=== PATIENT | male | born 1950 | race Hispanic/Latino ===

== ENCOUNTER 2025-05-27 16:26 | Emergency (ER) | payer MEDICARE, OTHER ==
[2025-05-27] MEDS ORDERED: Ondansetron PF 4 MG/2 ML Vial ONE (17:52)
[2025-05-27 18:15] LABS: #Basophils 0.04 10x3/uL (0.0-0.2); #Eosinophils Less than 0.03 10x3/uL (0.0-0.5); #Monocytes 1.14 10x3/uL (0.0-1.1); #Neutrophils 20.48 10x3/uL (1.5-8.4); %Basophils 0.2 % (0.0-2.0); %Eosinophils 0.1 % (0.0-6.0); %Lymphocytes 5.7 % (18.0-47.0); %Monocytes 4.9 % (0.0-10.0); %Neutrophils 88.5 % (40.0-75.0); Hematocrit 50.4 % (38.8-50.0); Hemoglobin 16.2 g/dL (13.5-17.5); Mean Corpuscular Hemoglobin 29.1 pg (27.0-33.0); Mean Corpuscular Volume 90.6 fL (81.2-95.1); Platelet Count 250 10x3/uL (150-450); Red Blood Cell (RBC) Count 5.56 10x6/uL (4.32-5.72); White Blood Cell (WBC) Count 23.12 10x3/uL (3.5-10.5)
[2025-05-27 18:24] LABS: ALT (SGPT) Less than 4 U/L (Less than 45); AST (SGOT) 12 U/L (11-34); Albumin 3.2 g/dL (3.1-4.5); Alkaline Phosphatase 113 U/L (40-110); Anion Gap 14 mmol/L (10-20); BUN (Urea Nitrogen) 20 mg/dL (8.4-25.7); Bilirubin, Total 1.7 mg/dL (0.3-1.2); Calc. Creatinine Clearance 0 mL/min (70-130); Calcium 9.2 mg/dL (7.8-10.44); Carbon Dioxide 22 mmol/L (23-31); Chloride 106 mmol/L (98-107); Globulin 4.4 g/dL (2.4-3.5); Glucose 135 mg/dL (83-110); Lipase 5 U/L (8-78); Potassium 4.0 mmol/L (3.5-5.1); Sodium 138 mmol/L (136-145)
[2025-05-27 18:55] LABS: Glucose, Urine (Dipstick) Normal (Negative); Leukocyte 100 (Negative); Protein, Urine (Dipstick) 30 mg/dl (Neg-Trace); Specific Gravity, Urine 1.020 (1.005-1.030)
[2025-05-27 19:38] LABS: CAUTI Indications for Culture Pelvic or flank pain; RBC/HPF None Seen HPF (0-3)
[2025-05-27 19:39] LABS: Bacteria/HPF 4+ HPF (None Seen); Urine Culture Reflex No No
== END 2025-05-27 22:50 | disposition short-term general hospital (02) ==
LOC: CSHERS 16:26
DX: K35.80 Unspecified acute appendicitis (principal); L02.211 Cutaneous abscess of abdominal wall; I48.91 Unspecified atrial fibrillation; I10 Essential (primary) hypertension; F03.90 Unspecified dementia, unspecified severity, without behavioral disturbance, psychotic disturbance, mood disturbance, and anxiety
CPT/HCPCS: 74177; 80053; 81001; 83690; 85025; 93005; J2270; J2543; 36415; 96361; 96365; 96366; 96374; 96375; J2405